=== PATIENT | female | born 1990 | race African-American/Black ===

== ENCOUNTER → 2017-04-11 | Outpatient (REF) | payer OTHER | LOC: M SFHCLERA 10:02 | DX: J00 Acute nasopharyngitis [common cold] (principal) ==

== ENCOUNTER → 2017-06-23 | Outpatient (REF) | payer OTHER ==
[2017-06-23 15:08] LABS: HCG, SERUM QUANTITATIVE < 1.0 MIU/ML
== END ==
LOC: M LAB REF 14:40
DX: Z70.9 Sex counseling, unspecified (principal); Z32.01 Encounter for pregnancy test, result positive

== ENCOUNTER → 2017-08-25 | Outpatient (REF) | payer OTHER ==
[2017-08-25 19:29] LABS: HCG, SERUM QUANTITATIVE < 1.0 MIU/ML
== END ==
LOC: M LAB REF 17:33
DX: N91.2 Amenorrhea, unspecified (principal)

== ENCOUNTER → 2017-11-10 | Outpatient (REF) | payer OTHER ==
[2017-11-10 15:13] LABS: HCG, SERUM QUANTITATIVE < 1.0 MIU/ML
== END ==
LOC: M LAB REF 14:19
DX: R11.0 Nausea (principal)

== ENCOUNTER → 2018-07-03 | Outpatient (REF) | payer OTHER ==
[~2018-07-03] MED LIST: PROBCAP4 PO; ZOFR4TAB14 PO
[2018-07-03 18:53] LABS: HCG, SERUM QUALITATIVE NEGATIVE (NEGATIVE)
[2018-07-03 20:04] LABS: ATYPICAL LYMPH 2 % (0-5); BASOPHILS 1 % (0-4); EOSINOPHILS 3 % (0-5); LYMPHOCYTES 66 % (16-52); MONOCYTES 10 % (0-8); NEUTROPHILS 18 % (35-75)
[2018-07-03 20:05] LABS: PLATELET ESTIMATE NORMAL (NORMAL)
== END ==
LOC: M LAB REF 16:30
PROVIDERS: ATTEND Internal Medicine
DX: N91.2 Amenorrhea, unspecified (principal); D72.9 Disorder of white blood cells, unspecified

== ENCOUNTER → 2018-10-21 | Outpatient (CLI) | payer OTHER ==
[2018-10-21 10:06] LABS: HCG, SERUM QUANTITATIVE < 1.0 MIU/ML
[2018-10-21 10:08] LABS: PROGESTERONE 38.99 NG/ML
[2018-10-21 10:09] LABS: ESTRADIOL 77.7 PG/ML
== END ==
LOC: M LAB 08:54
PROVIDERS: ATTEND Obstetrics & Gynecology Reproductive Endocrinology
DX: E28.9 Ovarian dysfunction, unspecified (principal)

== ENCOUNTER → 2019-04-21 | Outpatient (CLI) | payer OTHER | LOC: M LAB 08:12 | PROVIDERS: ATTEND Obstetrics & Gynecology | DX: Z34.02 Encounter for supervision of normal first pregnancy, second trimester (principal); Z3A.00 Weeks of gestation of pregnancy not specified ==

== ENCOUNTER → 2019-04-29 | Outpatient (REF) | payer OTHER | LOC: M LAB REF 09:33 | PROVIDERS: ATTEND Dermatology | DX: L91.0 Hypertrophic scar (principal) ==